=== PATIENT | female | born 1935 | race Caucasian/White ===

== ENCOUNTER 2019-02-04 02:40 | Emergency (ER) | payer MEDICARE, OTHER ==
[~2019-02-04] VITALS: Ht 152.4 cm; Wt 81.6 kg
[2019-02-04] MEDS ORDERED: OXYBUTYNIN CHLO10 MG PO (03:04)
[2019-02-04] MEDS ORDERED: ZOFRAN4 MG PO (05:37)
[2019-02-04] MEDS ORDERED: NORCO 5-325 TA1 EACH PO (05:37)
== END 2019-02-04 05:55 | disposition home or self-care (01) ==
LOC: ED 02:40
DX: N13.2 Hydronephrosis with renal and ureteral calculous obstruction (principal); Z87.891 Personal history of nicotine dependence; Z90.49 Acquired absence of other specified parts of digestive tract; Z79.899 Other long term (current) drug therapy
CPT/HCPCS: 74177; 80053; 81001; 83690; 85025; 99284-25; J1170; J2405; J7040; Q9967

== ENCOUNTER 2020-06-20 12:43 | Emergency (ER) | payer MEDICARE ==
[~2020-06-20] VITALS: Ht 152.4 cm; Wt 81.6 kg
[~2020-06-20 12:43] MED LIST: NORCO 5-325 TA1 EACH PO; OXYBUTYNIN CHLO10 MG PO; ZOFRAN4 MG PO
--- NOTE | 2020-06-21 06:45 | EKG ---
[facility] [address] [place] [address] Signed Normal sinus rhythm Nonspecific T wave abnormality Abnormal ECG No previous ECGs available Confirmed by DANIELLE GUIDO MD ([id number]) on 06/21/2020 6:45:21 AM Electronically Signed By: DANIELLE GUIDO MD 06/21/20 0645 PATIENT NAME: JUAN MANUEL HAWKINS Electrocardiogram DATE OF : 35 PHYSICIAN: DANIELLE GUIDO MD REPORT #: [id number] REPORT IS CONFIDENTIAL AND NOT TO BE RELEASED WITHOUT AUTHORIZATION
== END 2020-06-20 16:42 | disposition home or self-care (01) ==
LOC: ED 12:43
DX: S29.012A Strain of muscle and tendon of back wall of thorax, initial encounter (principal); S00.03XA Contusion of scalp, initial encounter; R73.03 Prediabetes; Z87.891 Personal history of nicotine dependence; Z79.899 Other long term (current) drug therapy; W18.30XA Fall on same level, unspecified, initial encounter
CPT/HCPCS: 36415; 70450; 71045; 72070; 72125; 80048; 81001; 84484; 85025; 93005; 93010; 96374; 99284-25; J1885

== ENCOUNTER 2020-09-13 12:43 | Inpatient (IN) | payer MEDICARE, OTHER ==
[~2020-09-13] VITALS: Ht 152.4 cm; Wt 82.3 kg
[2020-09-13] MEDS ORDERED: CALCIUM500 M1 PO (13:07)
[2020-09-13] MEDS ORDERED: SUPER B-50 COM1 EACH PO (13:08)
--- NOTE | 2020-09-13 19:26 | NUR ---
IN ROOM FOR REPORT, PT IS AWAKE IN BED. 2 PA TO RESTROOM WITH KATI HARRIS. PT REPORTED SOME DIZZINESS. 2 PA WITH FWW BACK TO BED WITH HELP OF BAYRON COOK. PT IS BACK IN BED AND DENIES FURTHER NEEDS AT THIS TIME. REMINDED PT TO CALL BEFORE GETTING UP AND BED ALARM IS ON. CALL LIGHT IS CLOSE.
--- NOTE | 2020-09-13 20:21 | NUR ---
IV IN R WRIST NOT LEFT, DC'D DOCUMENTATION FOR L WRIST. PT ANITHAOES HAVE FEILD START IN L HAND ALSO.
--- NOTE | 2020-09-13 20:37 | NUR ---
SWITCHED IV FLUID TO LR AND ASSESSED PT. SHE DENIES PAIN. SHE HAS SOME INTERMITTENT CONFUSION/FORGETFULLNESS. SHE HAS SOME DIFFICULTY FOLLOWING DIRECTIONS. VS TAKEN AND ENTERED WITH [facility] CLERICAL MANAGER. PT DENIES NEEDS AT THIS TIME. CALL LIGHT IS CLOSE. BED ALARM IS ON.
--- NOTE | 2020-09-13 21:53 | NUR ---
PATIENT GOT UP TO USE THE BATHROOM ASSISTED BY STEVEN PARIKH AND STEVEN LEONARD. USED WALKER. PATIENT IS BACK IN BED. ICE WATER PROVIDED. TV GUIDE AND CALL LIGHT WITHIN REACH. BED ALARM ON FOR SAFETY.
--- NOTE | 2020-09-13 22:55 | NUR ---
PT IS RESTING WITH EYES CLOSED, RR IS EVEN AND NONLABORED. CALL LIGHT IS CLOSE AND BED ALARM IS ON.
--- NOTE | 2020-09-14 00:25 | NUR ---
PT IS RESTING WITH EYES CLOSED, RR IS EVEN AND NONLABORED. CALL LIGHT IS CLOSE.
--- NOTE | 2020-09-14 01:34 | NUR ---
PT IS RESTING WITH EYES CLOSED, RR IS EVEN AND NONLABORED. CALL LIGHT IS CLOSE AND BED ALARM IS ON.
--- NOTE | 2020-09-14 02:05 | NUR ---
PT CALLED OUT, ENETERED ROOM AND SHE STATED SHE NEEDS TO USE THE BATHROOM. BAYRON COOK ASSISTED HER TO THE BATHROOM 1PA WITH FWW. SHE IS NOW BACK IN BED. SHE DENIES PAIN, SOB, AND DIZZINESS. SHE STATES SHE USUALLY WAKES UP AT 0230. PT REQUIRES REORIENTATION FREQUENTLY. SHE DENIES NEEDS AT THIS TIME. CALL LIGHT IS CLOSE.
--- NOTE | 2020-09-14 04:20 | NUR ---
PT IS RESTING WITH EYES CLOSED, RR IS EVEN AND NONLABORED. CALL LIGHT IS CLOSE AND IV IS INFUSING FINE.
--- NOTE | 2020-09-14 06:03 | NUR ---
THIS RN WAS NOTIFIED BY MAMIE HARRIS THAT SHE HUNG A NEW BAG OF LR. UPON CHECKING ON PT SHE IS NOW RESTING WITH EYES CLOSED, RR IS EVEN AND NONLABORED. CALL LIGHT IS CLOSE AND BED ALARM IS ON.
--- NOTE | 2020-09-14 06:07 | NUR ---
PT SLEPT WELL FOR MOST OF THE NIGHT. SHE HAS LR INFUSING AT 100MLS/HR. SHE AMBULATES 1PA WITH FWW. PT DID NOT HAVE ANY COMPLAINTS OF PAIN THROUGH THE NIGHT. SHE HAS INTERMITTENT CONFUSION AND NEEDS TO BE REORIENTED AT TIMES.
--- NOTE | 2020-09-14 06:39 | NUR ---
PT IS A LITTLE MORE WEAK THIS MORNING. SHE REQUIRED 2PA WITH FWW TO RESTROOM AND BACK. PT DENIES FURTHER NEEDS. CALL LIGHT IS CLOSE AND BED ALARM IS ON.
--- NOTE | 2020-09-14 07:10 | NUR ---
SHIFT REPORT FROM AISHA RN INCLUDED: Pt had an uneventful night. Pt has moments of forgetfulness, but is otherwise A&O. Pt VSS. Pt currently in bed, table and call light within reach, breathing even and unlabored.
--- NOTE | 2020-09-14 09:40 | NUR ---
ROUNDING Checking in with Pt before I come in for med pass. Pt meeting with Nolvia Crane RN at this time. Pt reports that she is "doing well" and enjoying breakfast at this time. Pt in bed, table and call light within reach. at bedside.
--- NOTE | 2020-09-14 10:00 | NUR ---
ASSESSMENT + MED PASS + MD TO BEDSIDE Pt forgetting some details of her fall according to her son at bedside. Pt reporting that she was "getting out of bed" before the fall, and her son says they found her "in the kitchen getting ready to have lunch". MD Robledo to bedside to assess. Maria Case Management to bedside. Family and Pt considering new living placement for Pt. During assessment, pt seems weaker on her left side. MD and Case Management discuss that the Pt will likely be transfered to a care facility to continue therapy, but will spend the next few nights here. Pt verbalized understanding. Pt got med as ordered. Pt VSS, assessment completed in chart. Table and call light within reach.
--- NOTE | 2020-09-14 10:26 | NUR ---
PATIENT AWAKE IN BED, FAMILY IN ROOM. VITALS AND I&OS CHARTED. RN IN ROOM. CALL LIGHT IN REACH, NO OTHER NEEDS AT THIS TIME
--- NOTE | 2020-09-14 10:30 | NUR ---
In to visit the patient today, her son is also in the room at this time of this visit. The patient and her son both state that they are happy with her care here in the hospital, and the care that she received in the emergency room. Case Management assessment completed, there was a discussion with the patient regarding assisted living, and the patients ability to be safe. Patient and son agree that she probably needs to consider other options for a safe living environment. Patient is confused at times, this morning she stated that she is getting up and walking to the bathroom while at the hospital, however, in further review with staff, pt has not been walking to the restroom but has been using the bedside commode. Per staff later this morning, it was a complete two person assist to get her to the restroom this morning, which was the first time that she has gotten out of bed and ambulated. Pt does tell me that this morning she could not get out of bed, because her legs were "too weak". Pt is very pleasant, and son is very pleasant to talk to, both are willing to visit with, and consider her living options during this visit. Son did say that the patient has been living at home alone, but he or his drives her to the store, and that it is getting "harder and harder" for his mother to take care of her home and meet her needs for living independantly.
--- NOTE | 2020-09-14 11:00 | NUR ---
ROUNDING Pt in bed, sitting up, visiting with son at bedside. Pt denies pain and nausea at this time. Table and call light within reach, bed alarm on.
--- NOTE | 2020-09-14 12:00 | NUR ---
ROUNDING Pt in bed, sitting up and having lunch. Pt visiting with son at bedside. Pt denies pain and nausea at this time. Table and call light within reach, bed alarm on.
--- NOTE | 2020-09-14 13:00 | NUR ---
Spoke withadeel and son. Son is seeking assisted living for pt. Dr. Robledo was in the room with pt and feels pt would do best at SNF for deconditioning. We discussed this and Son would like pt to go to [facility] when she returns from SNF. Son would like pt to go to [facility] and to [facility] on dc from SNf. I will call [facility] to check for bed placement and call Rema and Michelle to see if she can visit with son today. Spoke with Rema and she will see pt this afternoon. Called Emma at [facility], they have beds. She requests chart. All faxed she will let me know today or tomorrow if they can accept.
--- NOTE | 2020-09-14 14:00 | NUR ---
ROUNDING Pt in bed, sitting up, visiting with son at bedside. Pt denies pain and nausea at this time. Table and call light within reach, bed alarm on. Pt reports she will need to pee soon, but not now.
--- NOTE | 2020-09-14 14:51 | EKG ---
[facility] [address] [place] [address] Signed Sinus rhythm with premature atrial complexes Otherwise normal ECG When compared with ECG of 20-JUN-2020 15:25, premature atrial complexes are now present Nonspecific T wave abnormality no longer evident in Lateral leads Confirmed by JOVANI JOHNSON DO ([id number]) on 09/14/2020 2:51:44 PM Electronically Signed By: JOVANI JOHNSON DO 09/14/20 1451 PATIENT NAME: JUAN MANUEL HAWKINS [place] Electrocardiogram DATE OF : 35 PHYSICIAN: JOVANI JOHNSON DO REPORT #: [id number] REPORT IS CONFIDENTIAL AND NOT TO BE RELEASED WITHOUT AUTHORIZATION
--- NOTE | 2020-09-14 15:22 | NUR ---
Received call from Emma at [facility]. They are accepting this pt. for Saturday. Will clarify with Emma tomorrow that all is set.
--- NOTE | 2020-09-14 15:56 | NUR ---
ROUNDING Pt denies pain and nausea at this time. Pt visiting with son and another woman. Pt in bed, breathing normally, table and call light within reach.
--- NOTE | 2020-09-14 16:32 | NUR ---
UP TO BATHROOM + CHAIR FOR DINNER Pt up to the bathroom, 2PA & FWW. Pt very forgetful and scatter-brained. Pt pleasant and cooperative though. Pt ablt to void. Pt up to chair for dinner, warm blanket given, fluids running as ordered. Table and call light within reach.
[2020-09-14] MEDS ORDERED: PROBIOTIC1 EAC1 PO (16:56)
--- NOTE | 2020-09-14 16:57 | NUR ---
Medications reconciled using pharmacy records and patient interview
--- NOTE | 2020-09-14 18:00 | NUR ---
ROUNDING Pt in chair, finishing dinner. Pts IV fluids complete, new bag hung. Pt denies pain and nausea at this time. Pt in chair, table and call light within reach. Pt visible from the nurses station.
--- NOTE | 2020-09-14 18:08 | NUR ---
PATIENT AWAKE IN CHAIR. VITALS AND I&OS CHARTED, WARM BLANKET AND FRESH WATER PROVIDED. EDUCATED PATIENT H[employer] LIGHT AND REMOTE CONTROL. CALL LIGHT IN REACH, NO OTHER NEEDS AT THIS TIME
--- NOTE | 2020-09-14 18:44 | NUR ---
UP TO BATHROOM, SORT OF. Pt needed to use the bathroom. Using the SBA and FWW and GAIT belt like before, I attempted to help her to the bathroom. Pt was unable to walk more than a few steps this time. Pt put on the bedpan in bed. Will use call light when fininshed. Table and call light within reach.
--- NOTE | 2020-09-14 19:20 | NUR ---
SHIFT REPORT RECEIVED FROM MELQUIADESCTEAGLE THAO AT BEDSIDE. pt AWAKE AND RESTING IN BED, RR EVEN AND UNLABORED. BED ALARM ON FOR SAFETY, CALL LIGHT IN REACH. IV FLUIDS INFUSING PER MD ORDERS, SITE WNL. BOARD UPDATED. CALL LIGHT IN REACH.
--- NOTE | 2020-09-14 20:45 | NUR ---
ASSESSMENT COMPLETE, NO SCHEDULED MEDS. IV FLUIDS INFUSING, SITES X2 WNL. pt ORIENTED TO SELF AND PLACE, SLOW TO RESPOND AT TIMES, BUT COMPLIANT WITH CARE. ASSSITED pt UP 2PA WITH FWW TO BATHROOM TO VOID. pt TOLERATED WELL AND IS BACK IN BED. DENIES PAIN AND NAUSEA. CALL LIGHT IN REACH.
--- NOTE | 2020-09-14 20:52 | NUR ---
2PA W FWW TO RESTROOM AND BACK TO BED WITH PRIMARY RN JOHN. BED ALARM IS ON AND JOHN RN IS IN ROOM WITH PT. CALL LIGHT IS CLOSE.
--- NOTE | 2020-09-14 23:15 | NUR ---
IN ROOM TO ANSWER CALL LIGHT, pt UP 1PA WITH FWW TO VOID. pt VERY SLOW MOVING AND OBSESSES OVER MAKING SURE HER IV TUBING REMAINS OUT OF THE WAY WHEN AMBULATING, ONCE BELIEVED IT TO BE A BUG. pt ORIENTED TO SELF AND PLACE. REORIENTED TO DATE AND TIME. UNMEASURED VOID X1, pt BACK IN BED, NO FURTHER NEEDS. CALL LIGHT IN REACH. BED ALARM ON.
--- NOTE | 2020-09-15 00:28 | NUR ---
pt UP 2PA WITH FWW TO BATHROOM TO VOID. pt TOLERATED WELL AND IS BACK IN BED. CALL LIGHT IN REACH AND BED ALARM ON.
--- NOTE | 2020-09-15 02:06 | NUR ---
pt RESTING IN BED WITH EYES CLOSED, RR EVEN AND UNLABORED. IV FLUIDS REMAIN INFUSING PER MD ORDERS. BED ALARM ON FOR SAFETY AND CALL LIGHT IN REACH.
--- NOTE | 2020-09-15 02:59 | NUR ---
PT CALLED OUT FOR HELP, SHE WANTED HELP TO THE RESTROOM. 1PA WITH FWW TO RESTROOM AND BACK TO BED. SHE DENIES FURTHER NEEDS AT THIS TIME AND CALL LIGHT IS CLOSE. BED ALARM IS ON.
--- NOTE | 2020-09-15 05:19 | NUR ---
VS AND I&O'S COMPLETE, SBP ELEVATED. pt RECENTLY AMBULATED TO BED AND WAS TENSE DURING BP TEST. WILL REASSESS BEFORE SHIFT CHANGE. IV FLUIDS INFUSING PER MD ORDERS, SITE WNL. IV SITE TO LEFT HAND DISCONTINUED IT WAS A FIELD START, CATHETER TIP INTACT. GAUZE AND COBAN IN PLACE. NO FURTHER NEEDS, CALL LIGHT IN REACH. BED ALARM ON FOR SAFETY.
--- NOTE | 2020-09-15 05:29 | NUR ---
ASSESSMENT ALSO COMPLETE, NO NEW CHANGES OR CONCERNS. CALL LIGHT IN REACH, BED ALARM ON. LAB IN ROOM FOR LAB DRAW.
--- NOTE | 2020-09-15 08:20 | NUR ---
Pt awake eating breakfast this morning. Morning medications given. Pt denies pain or nausea this morning. Lovenox injection given by student nurse Hema. Pt was ambulatory to bathroom 1-person assist w/ FWW this am. Tolerated well. Call light in reach. No other needs at this time.
--- NOTE | 2020-09-15 09:59 | NUR ---
Pt assisted to the br and voided and missed the hat. Pt slow and a bit unsteady and was helped with 2pa and with the use of the walker. Pt tolerated the movement well and is now back to her chair with her call bejarano in reach and chair alarm is on.
--- NOTE | 2020-09-15 10:00 | NUR ---
IN TO SEE PT PT/OT WORKING IN ROOM. WILL CHECK BACK WHEN THERAPY IS COMPLETE.
--- NOTE | 2020-09-15 11:50 | NUR ---
DR JOHNSON IN TO SEE PT. LIKELY TO DC TOMORROW MORNING. PT HAS BEEN UP IN CHAIR THROUGHOUT MORNING. SON, HARMONY, IN ROOM. LUNG SOUNDS ARE CLEAR AND PT'S VSS. MINIMAL EDEMA IN BLE (1+). ENCOURAGED PT TO KEEP LEGS ELEVATED WHILE SITTING. PT CONTINUES TO DENY ANY PAIN OR NAUSEA. EATING AND DRINKING WELL. REMAINS ON IVF @ 75 MLS/HR. NO ACUTE CHANGES. WATCHING TV. CALL LIGHT IN REACH.
--- NOTE | 2020-09-15 13:30 | NUR ---
NEW ORDERS FROM DR. 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 CK IS TRENDING DOWN, NOW 519. PHARMACY CALLED W/ ORDERS PER HOME DOSE.
--- NOTE | 2020-09-15 15:58 | NUR ---
OXYBUTNIN GIVE THIS AFTERNOON. THIS RN HELPED PT UP TO BATHROOM. PT HAS REPORTEDLY BEEN MISSING HAT FREQUENTLY DURING VOIDS, BUT WAS SUCCESSFUL THIS TIME. HAT EMPTIED OF 100 MLS YELLOW URINE. PT AMBULATED WELL W/ FWW. BP ALSO RE-EVALUATED, WNL AT 154/56. VISUALIZED BACKSIDE AND NO REDNESS NOTED, SKIN IS BLANCHABLE. PT BACK TO CHAIR AND CALL LIGHT IN REACH W/ CHAIR ALARM ON.
--- NOTE | 2020-09-15 16:21 | NUR ---
RT COLLECTED RAPID COVID 19 SWAB USING [facility] WITH NO COMPLICATIONS AT THIS TIME.
--- NOTE | 2020-09-15 18:31 | NUR ---
PT VSS. LUNG SOUNDS ARE CLEAR. PT CONTINUES TO NEED 1-PERSON SBA W/ FWW TO BR. URINARY URGENCY AND FREQUENCY IS STARTING TO DECREASE. SON, HARMONY, IN ROOM ALL DAY, HAS LEFT FOR THE NIGHT. PT TO BE DC'D TO SNF IN [facility] TOMORROW. SON TO BRING CLOTHES EARLY IN THE MORNING. IVF CONTINUES ORDERED. PT NOW RESTING IN CHAIR W/ EYES CLOSED. VISUALIZED CHEST RISE AND FALL. CALL LIGHT IS IN REACH.
--- NOTE | 2020-09-15 18:38 | NUR ---
PT AT TIMES CONFUSED TO DATE AND EVENTS BUT REORIENTED EASILY.
--- NOTE | 2020-09-15 19:29 | NUR ---
THIS MORING PATIENT WASHED HER FACE AND BRUSHED HER TEETH. THAN AFTER SHE WAS DONE OCCUPATIONAL THERAPY CAME IN TO WORK WITH HER SO SHE BRUSHED HER TEETH AGAIN. HER SON WAS IN THE ROOM VISITING HER.
--- NOTE | 2020-09-15 20:00 | NUR ---
IN TO ASST PT UP TO THE TOILET, 1-2PA FWW AND IV POLE, PT BACK TO THE BED AT THIS TIME, VITALS ARE DONE, IN PT RM AWHILE TO ASST PT GET READY FOR BED, RN NOW IN RM, NO FURTHER NEEDS AT THIS TIME
--- NOTE | 2020-09-15 20:17 | NUR ---
ALERT, COOP. UP TO BR WITH 1PA/FWW VOIDED, BACK TO BED. HOB ELEVATED TO HER COMOFRT, BRUISING NOSE, R THUMB WEBBING AND ELBOW. IVF INFUSING RW, EDEMA ANKLES 1+ l ANKLE, tRACE r ANKLE, ELEVATED. COOP. CALL LIGHT AND FLUIDS AT HANDS REACH. WATCHING TV, ON ROOM AIR, NO C/O PAIN. BP 172/52 ON RETURN TO BED. NO C/O H/A
--- NOTE | 2020-09-15 23:48 | NUR ---
PT HOLLERED OUT, COUDNT FIND CALL LIGHT, ASST PT HEAVY 1PA FWW UP TO THE TOILET, 2PA BACK INTO BED, NO FURTHER NEEDS AT THIS TIME
--- NOTE | 2020-09-16 01:01 | NUR ---
RESTING, EYES CLOSED, NO DISTRESS, CALL LIGHT AND FLUIDS AT BEDSIDE, LEGS ELEVATED, BED ALARM ON
--- NOTE | 2020-09-16 03:50 | NUR ---
PT CALL LIGHT ON, ASST PT TO TOILET, EASY 1PA FWW, PT UP FROM TOILET BYSELF, ATTENDS UP, 2PA SWING PT INTO BED, BUT OTHERWISE TRANSFERING WELL, NO FURTHER NEEDS AT THIS TIME
--- NOTE | 2020-09-16 04:00 | NUR ---
up to br w 1pa, voided, back to bed, tolerated well, awake, on room air, coop with assessment. Required 2pa to get back into bed. call light and fluids at bedside
--- NOTE | 2020-09-16 05:08 | NUR ---
Pt has slept, no c/o pain or sob, bruising and scabbed over areas from falls healing. trace edema at ankles, L more than R. Up to br with 1PA/FWW. Bed and chair alarm for fall precautions. IVF infusing w/o problems, Tolerating fluids well, uses call lights. Pt is to be dc'd this am. Pt aware. no c/o pain
--- NOTE | 2020-09-16 05:41 | NUR ---
PT CALLED FOR HELP TO THE RESTROOM. 1PA WITH FWW TO RESTROOM AND BACK TO BED. 2PA TO ASSIST HER LAYING DOWN. BLOOD NOTED ON PILLOWCASE UNDER HER R ARM WHERE SCAB WAS OPEN. PLACED NEW ALLEVYN ON R ELBOW. PT DENIES FURTHER NEEDS AT THIS TIME. CALL LIGHT IS CLOSE.
--- NOTE | 2020-09-16 08:15 | NUR ---
PT AWAKE UP IN CHAIR. SON HARMONY HAS BROUGHT CLOTHES FOR PT. HEAD TO TOE ASSESSMENT COMPLETE. NO ACUTE CHANGES. MORNING MEDICATIONS GIVEN. RFA IV REMOVED, WNL, CATH INTACT. PT EATING BREAKFAST AND IS WITHOUT COMPLAINT.
--- NOTE | 2020-09-16 09:00 | NUR ---
PT DRESSED AND VS TAKEN, STABLE. SON HARMONY TO DRIVE TO REHAB FACILITY. REPORT CALLED TO BRIAN. PT WHEELED TO CAR AND DEPARTED @ [id number].
--- NOTE | 2020-09-17 19:26 | NUR ---
PATIENT CALLED WENT IN SHE NEEDED HELP TO WALK TO THE BATHROOM AFTER SHE WAS DONE. THAN WE WALKED BACK TO HER CHAIR. GOT HER DRESSED. SHE BRUSHED HER TEETH AND WASHED HER FACE. GATHERED ALL HER STUFF.
== END 2020-09-16 08:55 | DRG 557 ==
LOC: ED 12:43 → MS 17:22
PROVIDERS: ADMIT Student in an Organized Health Care Education/Training Program; ATTEND Student in an Organized Health Care Education/Training Program
DX: M62.82 Rhabdomyolysis (principal); G93.41 Metabolic encephalopathy; Z20.822 Contact with and (suspected) exposure to COVID-19; R73.9 Hyperglycemia, unspecified; N32.81 Overactive bladder; R29.6 Repeated falls; Z66 Do not resuscitate; Z79.899 Other long term (current) drug therapy
CPT/HCPCS: 36415; 51701; 70450; 71045; 73502; 80048; 80053; 81001; 82550; 83036; 83735; 84484; 85025; 85379; 85610; 85730; 93005; 93010; 97110; 97116; 97162; 97166; 97535; 99285-25; C9803; J1650; J7030; J7040; J7121; U0003